=== PATIENT | female | born 1985 | race Caucasian/White ===

== ENCOUNTER 2018-08-21 14:08 | Outpatient (CLI) | payer OTHER ==
[2018-08-21 17:14] LABS: ADD UMIC NO; UR ASCORBIC ACID NEGATIVE (NEGATIVE); UR BACTERIA FEW /HPF (NONE SEEN); UR BILIRUBIN (Dip) NEGATIVE (NEGATIVE); UR BLOOD (Dip) NEGATIVE (NEGATIVE); UR CLARITY SLIGHTLY CLOUDY (CLEAR); UR COLOR STRAW (YELLOW); UR GLUCOSE (Dip) NEGATIVE (NEGATIVE); UR KETONES (Dip) NEGATIVE (NEGATIVE); UR LEUKOCYTE ESTERASE (Dip) NEGATIVE Leu/ul (NEGATIVE); UR NITRITE (Dip) NEGATIVE (NEGATIVE); UR RBC 1 /HPF (0-5); UR SPECIFIC GRAVITY (Dip) 1.005 (1.003-1.030); UR SQUAMOUS EPITHELIAL CELL FEW /HPF (FEW); UR TOTAL PROTEIN (Dip) NEGATIVE (NEGATIVE); UR UROBILINOGEN (Dip) NEGATIVE (NEGATIVE); UR WBC 2 /HPF (0-5)
[2018-08-21] MEDS: LACTATED RINGER'S 1,000 ML IV (17:49)
[2018-08-21] MEDS: TERBUTALINE 1 MG/ML INJ SC (17:50)
== END 2018-08-21 19:32 | disposition home or self-care (01) ==
LOC: OBT 14:08 → L-D 14:09 → OBT 19:32
DX: O62.9 Abnormality of forces of labor, unspecified (principal); Z3A.35 35 weeks gestation of pregnancy
CPT/HCPCS: 36415; 76818; 81001; 81003; 87086; 96360; 96361; 96372

== ENCOUNTER 2018-09-05 18:09 | Outpatient (CLI) | payer OTHER | END 2018-09-05 21:55 | disposition home or self-care (01) | LOC: OBT 18:09 → L-D 18:11 → OBT 21:55 | DX: O62.9 Abnormality of forces of labor, unspecified (principal); Z3A.38 38 weeks gestation of pregnancy | CPT/HCPCS: 76818 ==

== ENCOUNTER 2018-09-12 09:51 | Inpatient (IN) | payer OTHER ==
[2018-09-12] MEDS ORDERED: CEFAZOLIN 2 GM/50 ML (PMX) 50 ML IVPB (10:30)
[2018-09-12] MEDS ORDERED: METHYLERGONOVINE 0.2 MG INJ IM ×2 (10:30→18:30)
[2018-09-12] MEDS ORDERED: MISOPROSTOL 200 MCG TAB PR ×2 (10:30→18:30)
[2018-09-12] MEDS ORDERED: OXYTOCIN 30 UNITS/LR 500 ML IV ×3 (10:30→18:30)
[2018-09-12] MEDS ORDERED: CARBOPROST 250 MCG INJ IM ×2 (10:30→18:30)
[2018-09-12 11:16] LABS: ADD MAN DIFF? NO
[2018-09-12 11:25] LABS: BASOPHILS % 0.3 % (0.0-2.0); EOSINOPHILS # 0.1 10^3/ul (0.0-0.5); EOSINOPHILS % 1.7 % (0.0-7.0); HEMATOCRIT 36.9 % (37.0-47.0); HEMOGLOBIN 12.3 g/dl (12.0-16.0); LYMPHOCYTES % 26.3 % (15.0-51.0); MEAN CORPUSCULAR HEMOGLOBIN 32.2 pg (29.0-33.0); MEAN CORPUSCULAR HGB CONC 33.3 g/dl (32.0-37.0); MEAN CORPUSCULAR VOLUME 96.6 fl (82.0-101.0); MEAN PLATELET VOLUME 10.3 fl (7.4-10.4); MONOCYTE # 0.6 10^3/ul (0.3-0.9); MONOCYTES % 7.4 % (0.0-11.0); NEUTROPHILS % 63.9 % (39.0-77.0); PLATELET COUNT 257 10^3/UL (140-415); RED BLOOD COUNT 3.82 10^6/ul (4.20-5.40); RED CELL DISTRIBUTION WIDTH 13.2 % (11.5-14.5)
[2018-09-12 11:25] LABS: WHITE BLOOD COUNT 7.8 10^3/ul (4.8-10.8)
[2018-09-12 11:38] LABS: INR 0.86; PROTIME 11.8 Sec (11.9-14.9); PT RATIO 0.9
[2018-09-12 11:39] LABS: PARTIAL THROMBOPLASTIN TIME 26.4 Sec (23.0-35.0)
[2018-09-12] MEDS: LACTATED RINGER'S 1,000 ML IV ×3 (11:43→18:52)
[2018-09-12] MEDS: FAMOTIDINE 20 MG INJ IV (12:45)
[2018-09-12] MEDS: CITRIC ACID/NA CITRATE 30 ML CUP PO (12:45)
[2018-09-12] MEDS: METOCLOPRAMIDE 10 MG INJ IV (12:46)
[2018-09-12] MEDS ORDERED: morphine SULFATE/PF (10 MG/10 ML) INJ (13:13)
[2018-09-12] MEDS ORDERED: ONDANSETRON 4 MG INJ (13:43)
[2018-09-12] MEDS ORDERED: DIPHENHYDRAMINE 50 MG INJ IV ×2 (14:00→15:00)
[2018-09-12] MEDS ORDERED: HYDROmorphONE 1 MG/5 ML IV SYRINGE IV ×3 (14:00)
[2018-09-12] MEDS ORDERED: KETOROLAC 30 MG INJ IV (14:00)
[2018-09-12] MEDS ORDERED: PROCHLORPERAZINE 10 MG INJ IV (14:00)
[2018-09-12] MEDS ORDERED: MEPERIDINE 25 MG INJ IV (14:00)
[2018-09-12] MEDS ORDERED: FENTAnyl 50 MCG/ML VIAL IV ×3 (14:00)
[2018-09-12] MEDS ORDERED: ONDANSETRON 4 MG INJ IV ×2 (14:00→15:00)
[2018-09-12] MEDS ORDERED: EPHEDrine 25 MG/5 ML SYG (14:01)
[2018-09-12] MEDS: OXYTOCIN 30 UNITS/LR 500 ML IV (14:53)
[2018-09-12] MEDS ORDERED: ZOLPIDEM 5 MG TAB PO (15:00)
[2018-09-12] MEDS ORDERED: NALOXONE (0.4 MG/ML) INJ IV (15:00)
[2018-09-12] MEDS ORDERED: HYDROmorphONE 0.5 MG/0.5 ML SYG IV ×2 (15:00)
[2018-09-12] MEDS: AZITHROMYCIN 500MG/NS (PMX) 250 ML IVPB (15:29)
[2018-09-12] MEDS: KETOROLAC 30 MG INJ IV ×2 (16:00→21:52)
[2018-09-12] MEDS ORDERED: OXYCODONE/ACETAMINOPHEN (5/325) TAB PO (18:30)
[2018-09-12] MEDS ORDERED: NA PHOSPHATE/BIPHOS 133 ML ENEMA PR (18:30)
[2018-09-12] MEDS ORDERED: HYDROCODONE/APAP (5/325) TAB PO (18:30)
[2018-09-12] MEDS: ACETAMINOPHEN 500 MG TAB PO (18:32)
[2018-09-12] MEDS: LANOLIN HPA 1 PKT TOP (18:50)
[2018-09-12 19:59] LABS: RAPID PLASMA REAGIN NONREACTIVE (NR)
[2018-09-12 20:07] LABS: HEPATITIS B SURFACE ANTIGEN NEGATIVE (NEGATIVE)
[2018-09-12] MEDS: SENNA/DOCUSATE NA (8.6MG/50MG) TAB PO (21:28)
[2018-09-12] MEDS: CEFAZOLIN 2 GM/50 ML (PMX) 50 ML IVPB (21:28)
[2018-09-12] MEDS: IBUPROFEN 800 MG TAB PO (22:00)
[2018-09-12] MEDS: CLINDAMYCIN 300 MG CAP PO (23:52)
[2018-09-13] MEDS: LACTATED RINGER'S 1,000 ML IV ×3 (03:18→20:38)
[2018-09-13] MEDS: CEFAZOLIN 2 GM/50 ML (PMX) 50 ML IVPB ×2 (04:50→11:22)
[2018-09-13] MEDS: IBUPROFEN 800 MG TAB PO ×3 (06:00→22:42)
[2018-09-13] MEDS: CLINDAMYCIN 300 MG CAP PO ×3 (06:22→18:47)
[2018-09-13 09:40] LABS: ADD MAN DIFF? NO
[2018-09-13 09:42] LABS: BASOPHILS % 0.2 % (0.0-2.0); HEMATOCRIT 23.3 % (37.0-47.0); HEMOGLOBIN 7.8 g/dl (12.0-16.0); LYMPHOCYTES # 2.3 10^3/ul (0.8-2.9); LYMPHOCYTES % 23.4 % (15.0-51.0); MEAN CORPUSCULAR HEMOGLOBIN 33.5 pg (29.0-33.0); MEAN CORPUSCULAR HGB CONC 33.5 g/dl (32.0-37.0); MEAN PLATELET VOLUME 10.4 fl (7.4-10.4); MONOCYTE # 0.8 10^3/ul (0.3-0.9); NEUTROPHIL # 6.8 10^3/ul (1.6-7.5); NEUTROPHILS % 67.9 % (39.0-77.0); PLATELET COUNT 207 10^3/UL (140-415); RED BLOOD COUNT 2.33 10^6/ul (4.20-5.40); RED CELL DISTRIBUTION WIDTH 13.4 % (11.5-14.5)
[2018-09-13] MEDS: SENNA/DOCUSATE NA (8.6MG/50MG) TAB PO ×2 (11:21→22:42)
[2018-09-14] MEDS: BISACODYL 10 MG SUPP PR ×2 (00:09)
[2018-09-14] MEDS: CLINDAMYCIN 300 MG CAP PO ×5 (00:13→23:55)
[2018-09-14] MEDS: LACTATED RINGER'S 1,000 ML IV (03:30)
[2018-09-14] MEDS: IBUPROFEN 800 MG TAB PO ×3 (05:30→22:58)
[2018-09-14] MEDS: SENNA/DOCUSATE NA (8.6MG/50MG) TAB PO ×2 (08:56→21:00)
[2018-09-14 19:11] LABS: ADD MAN DIFF? NO
[2018-09-14 19:14] LABS: BASOPHILS % 0.2 % (0.0-2.0); EOSINOPHILS # 0.2 10^3/ul (0.0-0.5); EOSINOPHILS % 1.6 % (0.0-7.0); HEMATOCRIT 26.3 % (37.0-47.0); HEMOGLOBIN 8.4 g/dl (12.0-16.0); LYMPHOCYTES # 2.6 10^3/ul (0.8-2.9); MEAN CORPUSCULAR HEMOGLOBIN 32.7 pg (29.0-33.0); MEAN CORPUSCULAR HGB CONC 31.9 g/dl (32.0-37.0); MEAN CORPUSCULAR VOLUME 102.3 fl (82.0-101.0); MONOCYTE # 0.7 10^3/ul (0.3-0.9); MONOCYTES % 7.2 % (0.0-11.0); NEUTROPHIL # 6.3 10^3/ul (1.6-7.5); NEUTROPHILS % 64.1 % (39.0-77.0); PLATELET COUNT 266 10^3/UL (140-415); RED BLOOD COUNT 2.57 10^6/ul (4.20-5.40); RED CELL DISTRIBUTION WIDTH 13.9 % (11.5-14.5)
[2018-09-14 19:14] LABS: WHITE BLOOD COUNT 9.9 10^3/ul (4.8-10.8)
[2018-09-14] MEDS ORDERED: ACETAMINOPHEN 325 MG TAB PO (22:30)
[2018-09-15] MEDS: CLINDAMYCIN 300 MG CAP PO ×2 (05:48→11:41)
[2018-09-15] MEDS: IBUPROFEN 800 MG TAB PO ×2 (05:49→13:40)
[2018-09-15] MEDS: SENNA/DOCUSATE NA (8.6MG/50MG) TAB PO (09:00)
[2018-09-15] MEDS: DIPHTH/TET/ACEL PERTUSS (ADULT) 0.5 ML VIAL IM* (09:01)
[2018-09-15] MEDS ORDERED: PE/SHARK OIL/MO/PETROL 30 GM OINT PR (13:30)
== END 2018-09-15 14:10 | disposition home or self-care (01) | DRG 785 ==
LOC: L-D 09:51 → PP1 17:55
PROVIDERS: Obstetrics & Gynecology
PROC: 10D00Z1 Extraction of Products of Conception, Low, Open Approach (ICD-10-PCS; principal; 2018-09-12 12:30)
PROC: 0UB70ZZ Excision of Bilateral Fallopian Tubes, Open Approach (ICD-10-PCS; 2018-09-12 12:30)
DX: O34.211 Maternal care for low transverse scar from previous cesarean delivery (principal); Z3A.39 39 weeks gestation of pregnancy; Z37.0 Single live birth; Z30.2 Encounter for sterilization
CPT/HCPCS: 85025; 85610; 85730; 86592; 86850; 86900; 86901; 87340; 88302; 99464